=== PATIENT | female | born 1985 ===

== ENCOUNTER 2022-09-07 12:44 | Inpatient (IN) | payer OTHER ==
[~2022-09-07] VITALS: Ht 162.6 cm; Wt 61.7 kg
[2022-09-16] MEDS ORDERED: GABAPENTIN100 MG PO (11:52)
[2022-09-16] MEDS ORDERED: ACETAMINOPHEN325 M1 PO (11:52)
== END 2022-09-16 13:41 | disposition home or self-care (01) | DRG 743 ==
LOC: O/R 09-14 05:10 → SURH 09-14 07:00
PROVIDERS: ADMIT Surgery; ATTEND Surgery
PROC: 0UT74ZZ Resection of Bilateral Fallopian Tubes, Percutaneous Endoscopic Approach (ICD-10-PCS; 2022-09-14)
PROC: 0UT14ZZ Resection of Left Ovary, Percutaneous Endoscopic Approach (ICD-10-PCS; 2022-09-14)
PROC: 0DNW4ZZ Release Peritoneum, Percutaneous Endoscopic Approach (ICD-10-PCS; 2022-09-14)
PROC: 0WBF4ZZ Excision of Abdominal Wall, Percutaneous Endoscopic Approach (ICD-10-PCS; 2022-09-14)
PROC: 0DTJ4ZZ Resection of Appendix, Percutaneous Endoscopic Approach (ICD-10-PCS; 2022-09-14)
PROC: 0UT94ZZ Resection of Uterus, Percutaneous Endoscopic Approach (ICD-10-PCS; principal; 2022-09-14 07:00)
DX: N80.42 Endometriosis of rectovaginal septum with involvement of vagina (principal); N80.50 Endometriosis of intestine, unspecified; N80.C9 Endometriosis of other site of abdomen; N72 Inflammatory disease of cervix uteri; N83.12 Corpus luteum cyst of left ovary